=== PATIENT | female | born 1965 ===

== ENCOUNTER → 2018-11-12 08:41 | Outpatient (CLI) | payer OTHER | END | disposition home or self-care (01) | LOC: LAB 08:41 | DX: D69.6 Thrombocytopenia, unspecified (principal) ==

== ENCOUNTER 2018-12-31 08:02 | Outpatient (CLI) | payer OTHER | END 2018-12-31 08:17 | disposition home or self-care (01) | LOC: LAB 08:02 | DX: I10 Essential (primary) hypertension (principal); R73.9 Hyperglycemia, unspecified; D63.8 Anemia in other chronic diseases classified elsewhere; M81.0 Age-related osteoporosis without current pathological fracture; D64.89 Other specified anemias; E03.8 Other specified hypothyroidism ==

== ENCOUNTER 2019-03-25 07:56 | Outpatient (CLI) | payer OTHER | END 2019-03-25 08:42 | disposition home or self-care (01) | LOC: LAB 07:56 | DX: D50.8 Other iron deficiency anemias (principal); E03.8 Other specified hypothyroidism; E78.2 Mixed hyperlipidemia; I11.9 Hypertensive heart disease without heart failure; E56.8 Deficiency of other vitamins; N39.0 Urinary tract infection, site not specified; Z12.11 Encounter for screening for malignant neoplasm of colon; R19.5 Other fecal abnormalities; E55.9 Vitamin D deficiency, unspecified; N19 Unspecified kidney failure; E11.9 Type 2 diabetes mellitus without complications; R80.8 Other proteinuria; C18.8 Malignant neoplasm of overlapping sites of colon; K92.1 Melena ==

== ENCOUNTER 2020-09-01 08:13 | Outpatient (CLI) | payer OTHER | END 2020-09-01 08:32 | disposition home or self-care (01) | LOC: NUCLEAR 08:13 | PROVIDERS: ATTEND Internal Medicine Geriatric Medicine | DX: I87.2 Venous insufficiency (chronic) (peripheral) (principal) ==

== ENCOUNTER 2025-06-06 08:09 | Outpatient (CLI) | payer OTHER | END 2025-06-06 08:10 | disposition home or self-care (01) | LOC: NUCLEAR 08:09 | PROVIDERS: ATTEND Internal Medicine Geriatric Medicine | DX: I87.2 Venous insufficiency (chronic) (peripheral) (principal) ==